=== PATIENT | female | born 1980 | race Caucasian/White ===

== ENCOUNTER 2021-01-04 15:08 | Emergency (ER) | payer OTHER ==
[~2021-01-04] VITALS: Ht 167.6 cm; Wt 47.6 kg
== END 2021-01-04 20:23 | disposition home or self-care (01) ==
LOC: ED 15:08
DX: F22 Delusional disorders (principal); Z87.891 Personal history of nicotine dependence; Z91.040 Latex allergy status
CPT/HCPCS: 80053; 81001; 84702; 84703; 85025; 99285; G0480